=== PATIENT | male | born 1995 | race Caucasian/White ===

== ENCOUNTER 2017-12-27 11:56 | Emergency (ER) | payer MEDICAID ==
[~2017-12-27] VITALS: Ht 152.4 cm; Wt 100.0 kg
[~2017-12-27 11:56] MED LIST: OFLO5DRO5 RIGHT EAR
[2017-12-27 12:13] VITALS: BP 155/85
[2017-12-27] MEDS ORDERED: POLOS RIGHTEYE (12:55)
== END 2017-12-27 13:08 | disposition home or self-care (01) ==
LOC: ER 11:57
DX: H10.9 Unspecified conjunctivitis (principal); F12.10 Cannabis abuse, uncomplicated; F15.10 Other stimulant abuse, uncomplicated; F11.10 Opioid abuse, uncomplicated; Z72.0 Tobacco use
CPT/HCPCS: 99283

== ENCOUNTER 2018-09-17 11:17 | Emergency (ER) | payer MEDICAID, OTHER ==
[~2018-09-17] VITALS: Ht 177.8 cm; Wt 81.8 kg
[2018-09-17 11:23] VITALS: BP 154/84
== END 2018-09-17 11:32 ==
LOC: EDBD → ER 11:19 → MERGE 11:19 → ER 11:32
DX: S00.81XA Abrasion of other part of head, initial encounter (principal); V87.7XXA Person injured in collision between other specified motor vehicles (traffic), initial encounter; Y93.89 Activity, other specified; Y92.488 Other paved roadways as the place of occurrence of the external cause; Y99.8 Other external cause status
CPT/HCPCS: 99283